=== PATIENT | female | born 1995 | race African-American/Black ===

== ENCOUNTER 2020-07-19 02:45 | Observation (INO) | payer OTHER ==
[~2020-07-19] VITALS: Ht 160 cm; Wt 84.8 kg
[2020-07-19 03:15] VITALS: BP 104/64
[2020-07-19] MEDS ORDERED: HydrOXYzine HCL 50 MG TABLET PO ONE (04:45)
[2020-07-19 06:35] LABS: COVID AG,FIA SOURCE NASOPHARYNGEAL
== END 2020-07-19 05:40 ==
LOC: 4S 02:45
PROVIDERS: ADMIT Student in an Organized Health Care Education/Training Program; ATTEND Student in an Organized Health Care Education/Training Program
DX: O26.893 Other specified pregnancy related conditions, third trimester (principal); Z20.822 Contact with and (suspected) exposure to COVID-19; R10.9 Unspecified abdominal pain; Z3A.33 33 weeks gestation of pregnancy
CPT/HCPCS: 59025; 76805; 80307; 87426; 96360; 96361; 99219